=== PATIENT | female | born 1975 | race Caucasian/White ===

== ENCOUNTER 2022-07-20 18:45 | Emergency (ER) | payer SELFPAY ==
[~2022-07-20] VITALS: Ht 167.6 cm; Wt 63.5 kg
[2022-07-20] MEDS ORDERED: IV NORMAL SALINE 1000 ML BAG IV ONE (19:00)
[2022-07-20] MEDS ORDERED: ASPIRIN 81 MG TAB.CHEW PO ONE (19:00)
--- NOTE | 2022-07-20 19:04 | NUR ---
47 years old female [facility] from [facility] c/o chest pain with anxiety placed on school lunch monitor, continuous pulse oximeter, EKG done and given to ER Md, report endorsed to 7pm shift RN all questions answered.
[2022-07-20 19:11] LABS: HEMATOCRIT 41.2 % (31.2-41.9); MEAN CORPUSCULAR HEMOGLOBIN 32.5 uug (24.7-32.8); MEAN CORPUSCULAR VOLUME 99.4 fL (75.5-95.3); PLATELET COUNT (AUTO) 252 K/uL (179-408)
[2022-07-20] MEDS ORDERED: ASPIRIN 81 MG TAB.CHEW ONE (19:16)
--- NOTE | 2022-07-20 19:18 | NUR ---
Xray at bedside.
[2022-07-20 19:21] LABS: CARBON DIOXIDE 27 mmol/L (21-32); CHLORIDE 100 mmol/L (98-107); CREATININE 0.8 mg/dL (0.6-1.3); GLUCOSE 156 mg/dL (74-106); POTASSIUM 3.8 mmol/L (3.5-5.1); UREA NITROGEN, BLOOD 9 mg/dL (7-18)
--- NOTE | 2022-07-20 19:28 | NUR ---
Patient aox4, ambulating in room standby assist. Activity tolerated well.
[2022-07-20 19:35] LABS: ALANINE AMINOTRANSFERASE 30 U/L (14-59); ALKALINE PHOSPHATASE 101 U/L (50-136); ASPARTATE AMINOTRANSFERASE 22 U/L (15-37); BILIRUBIN,DIRECT 0.2 mg/dL (0.0-0.2); BILIRUBIN,TOTAL 0.4 mg/dL (0.2-1.0); TOTAL PROTEIN, SERUM 8.2 g/dL (6.4-8.2)
[2022-07-20] MEDS ORDERED: IOHEXOL 350 100 ML INFUS..BTL ONE (19:49)
[2022-07-20] MEDS ORDERED: SWABABLE VALVE TRANSFER SET EA MC ONE (19:49)
[2022-07-20] MEDS ORDERED: IV NORMAL SALINE 250 ML IV ONE (19:49)
[2022-07-20] MEDS ORDERED: DIAZEPAM 10 MG/2 ML DISP.SYRIN ONE (19:59)
[2022-07-20] MEDS ORDERED: DIAZEPAM 10 MG/2 ML DISP.SYRIN IV ONE (20:00)
--- NOTE | 2022-07-20 20:06 | NUR ---
Patient taken to CT via wheelchair accompanied by tech. Patient in stable condition, no signs of distress noted.
--- NOTE | 2022-07-20 21:27 | NUR ---
Patient given two puddings and water bottle.
--- NOTE | 2022-07-20 22:53 | NUR ---
Patient discharged to home in stable condition. Written and verbal after care instructions given. Patient verbalizes understanding of instructions. Stressed follow up or return to ER for worsening s/s.
[2022-07-21 01:09] VITALS: BP 115/81
== END 2022-07-21 01:00 | disposition home or self-care (01) ==
LOC: ER 18:45
DX: R07.89 Other chest pain (principal); R00.0 Tachycardia, unspecified; R10.2 Pelvic and perineal pain; F17.210 Nicotine dependence, cigarettes, uncomplicated; Z71.6 Tobacco abuse counseling
CPT/HCPCS: 99285; 96374; 71045; 96361; 99406; 80076; 80048; 83880; 85025; 85379; 84484 ×2; 84702; 36415; 93005; J3360; J7040; A4663; Q9967